=== PATIENT | female | born 1985 | race Caucasian/White ===

== ENCOUNTER 2016-08-26 21:02 | Emergency (ER) | payer MEDICAID ==
[2016-08-26 23:06] VITALS: BP 125/93
== END 2016-08-26 23:06 | disposition home or self-care (01) ==
LOC: ED 21:02
DX: Z76.0 Encounter for issue of repeat prescription (principal); M54.32 Sciatica, left side; M54.31 Sciatica, right side

== ENCOUNTER 2016-09-05 05:50 | Emergency (ER) | payer MEDICAID ==
[2016-09-05 06:29] VITALS: BP 128/80
== END 2016-09-05 06:29 | disposition home or self-care (01) ==
LOC: ED 05:50
DX: M54.31 Sciatica, right side (principal)

== ENCOUNTER 2016-09-29 21:01 | Emergency (ER) | payer MEDICAID ==
[~2016-09-29] VITALS: Ht 165.1 cm; Wt 92.1 kg
[2016-09-29 22:16] VITALS: BP 122/74
== END 2016-09-29 22:16 | disposition home or self-care (01) ==
LOC: ED 21:01
DX: M54.31 Sciatica, right side (principal); R03.0 Elevated blood-pressure reading, without diagnosis of hypertension; Z90.710 Acquired absence of both cervix and uterus